=== PATIENT | male | born 1985 | race Asian ===

== ENCOUNTER 2018-02-05 13:34 | Emergency (ER) | payer SELFPAY | END 2018-02-05 14:46 | disposition home or self-care (01) | LOC: ERS 13:34 | DX: J06.9 Acute upper respiratory infection, unspecified (principal) | CPT/HCPCS: 99283 ==

== ENCOUNTER 2018-04-24 16:22 | Emergency (ER) | payer SELFPAY ==
[2018-04-24 16:55] LABS: #Eosinphils 0.4 thou/uL (0.0-0.7); #Lymphocytes 2.1 thou/uL (1.20-3.40); %Basophils 0.4 % (0.0-1.0); %Eosinophils 4.1 % (0.0-10.0); %Lymphocytes 22.2 % (21.0-51.0); %Monocytes 10.5 % (0.0-10.0); %Neutrophils 62.8 % (42.0-75.0); Hemoglobin 12.9 g/dL (14.0-18.0); Mean Corpuscular HGB CONC 31.4 g/dL (32.0-36.0); Mean Corpuscular Hemoglobin 26.3 pg (27.0-31.0); Mean Corpuscular Volume 83.6 fL (78.0-98.0); Mean Platelet Volume 9.1 fL (7.4-10.4); Platelet Count 166 thou/uL (130-400); Red Blood Cell (RBC) Count 4.91 mill/uL (4.70-6.10); White Blood Cell (WBC) Count 9.5 thou/uL (4.8-10.8)
--- NOTE | 2018-04-24 17:05 | CT ---
CT HEAD NONCONTRAST: Date: 04/24/18 HISTORY: Syncope. FINDINGS: No comparison. There is no evidence of acute intracranial hemorrhage or infarct. Ventricles appear normal in size, s hape, and position. There is no mass effect or shift of midline structures. Fluid layers within the p artially visualized left maxillary sinus. Mucosal thickening within the maxillary sinuses and ethmoid air cells. IMPRESSION: 1. No acute intracranial abnormalities are demonstrated. 2. Ethmoid and left maxillary sinusitis. POS: [facility]
--- NOTE | 2018-04-24 17:31 | RAD ---
CHEST ONE VIEW: 04/24/17 HISTORY: Syncope. FINDINGS: No comparison. The cardiac silhouette is magnified by projection. Pulmonary vasculature upper limits of normal. Medi astinum is midline. No lobar consolidation or evidence of pneumothorax. IMPRESSION: No active cardiopulmonary abnormalities are demonstrated. POS: [facility]
== END 2018-04-24 17:28 | disposition home or self-care (01) ==
LOC: ERS 16:22
DX: R55 Syncope and collapse (principal); R51 Headache
CPT/HCPCS: 36415; 70450; 71045; 82550; 84146; 85025; 93005

== ENCOUNTER 2018-09-24 15:36 | Emergency (ER) | payer SELFPAY ==
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
[2018-09-24] MEDS ORDERED: Ketorolac Tromethamine 30 MG/ML VIAL ONE (16:36)
== END 2018-09-24 16:55 | disposition home or self-care (01) ==
LOC: ERS 15:36
DX: G89.11 Acute pain due to trauma (principal); M25.552 Pain in left hip; W22.8XXA Striking against or struck by other objects, initial encounter
CPT/HCPCS: 96372; J1885

== ENCOUNTER 2020-04-13 09:56 | Emergency (ER) | payer OTHER, SELFPAY ==
[2020-04-13 10:29] LABS: #Basophils 0.1 thou/uL (0.0-0.2); #Eosinphils 0.3 thou/uL (0.0-0.7); #Lymphocytes 2.6 thou/uL (1.20-3.40); #Monocytes 0.4 thou/uL (0.11-0.59); #Neutrophils 2.3 thou/uL (1.40-6.50); %Basophils 1.1 % (0.0-1.0); %Eosinophils 5.6 % (0.0-10.0); %Lymphocytes 46.3 % (21.0-51.0); %Monocytes 6.8 % (0.0-10.0); %Neutrophils 40.3 % (42.0-75.0); Hemoglobin 13.7 g/dL (14.0-18.0); Mean Corpuscular HGB CONC 32.4 g/dL (32.0-36.0); Mean Corpuscular Hemoglobin 25.9 pg (27.0-31.0); Mean Platelet Volume 9.3 fL (7.4-10.4); Platelet Count 186 thou/uL (130-400); RBC Distribution Width 12.4 % (11.5-14.5); Red Blood Cell (RBC) Count 5.28 mill/uL (4.70-6.10); White Blood Cell (WBC) Count 5.6 thou/uL (4.8-10.8)
[2020-04-13 10:36] LABS: INR-International Normal Ratio 1.1; PTT 26.5 sec (22.9-36.1); Prothrombin Time 14.5 sec (12.0-14.7)
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
[2020-04-13 10:49] LABS: ALT (SGPT) 21 U/L (8-55); AST (SGOT) 15 U/L (5-34); Albumin 4.3 g/dL (3.5-5.0); Alkaline Phosphatase 57 U/L (40-110); Anion Gap 13 mmol/L (10-20); BUN (Urea Nitrogen) 11 mg/dL (8.9-20.6); Bilirubin, Total 0.5 mg/dL (0.2-1.2); Calc. Creatinine Clearance 0 mL/min (70-130); Calcium 9.1 mg/dL (7.8-10.44); Carbon Dioxide 25 mmol/L (22-29); Chloride 108 mmol/L (98-107); Globulin 3.2 g/dL (2.4-3.5); Glucose 113 mg/dL (70-105); Potassium 3.4 mmol/L (3.5-5.1); Protein, Total 7.5 g/dL (6.0-8.3); Sodium 143 mmol/L (136-145)
--- NOTE | 2020-04-13 11:09 | CT ---
CT CERVICAL SPINE: DATE: 04/13/2020. PROVIDED CLINICAL HISTORY: Pain status post fall. FINDINGS: There is no evidence for a fracture or traumatic subluxation. There is left premaxillary soft tissue swelling demonstrated. There is no prevertebral soft tissue swelling apparent. The visualized lung apices appear clear on the coronal and sagittal reconstructions. IMPRESSION: No evidence for a fracture or traumatic subluxation. POS: [facility]
[2020-04-13] MEDS ORDERED: Boostrix 0.5 ML (Tdap) VIAL ONE (11:21)
[2020-04-13] MEDS ORDERED: Ondansetron PF 4 MG/2 ML Vial ONE (11:24)
[2020-04-13] MEDS ORDERED: Morphine 4 MG/ML VIAL ONE (11:24)
== END 2020-04-13 12:00 | disposition home or self-care (01) ==
LOC: ERS 09:56 → EDBD 09:56 → ERS 12:00
DX: S06.0X9A Concussion with loss of consciousness of unspecified duration, initial encounter (principal); W01.10XA Fall on same level from slipping, tripping and stumbling with subsequent striking against unspecified object, initial encounter; Y99.0 Civilian activity done for income or pay
CPT/HCPCS: 70450; 70486; 72125; 80053; 85025; 85610; 85730; 90471; 90715; 93005; 96374; 96375; J2270; J2405

== ENCOUNTER 2023-11-12 23:40 | Emergency (ER) | payer OTHER, SELFPAY | END 2023-11-13 00:26 | disposition home or self-care (01) | LOC: ERS 23:40 | DX: L24.5 Irritant contact dermatitis due to other chemical products (principal) | CPT/HCPCS: 99283 ==

== ENCOUNTER 2024-01-05 12:24 | Emergency (ER) | payer OTHER ==
[2024-01-05] MEDS ORDERED: Famotidine 20 MG TAB ONE (15:55)
[2024-01-05] MEDS ORDERED: Lidocaine Viscous Sol 2% 15 ml UD Cup ONE (15:55)
[2024-01-05] MEDS ORDERED: Mag-Al 1200 mg/1200 mg/30 ML UDCUP ONE (15:55)
[2024-01-05] MEDS ORDERED: Lansoprazole 30 MG/10 ML UDCUP PO SCH (16:15)
[2024-01-05 17:27] LABS: #Basophils 0.03 10x3/uL (0.0-0.2); %Basophils 0.4 % (0.0-1.0); %Eosinophils 3.3 % (0.0-10.0); %Lymphocytes 41.7 % (21.0-51.0); %Monocytes 7.5 % (0.0-10.0); %Neutrophils 46.7 % (42.0-75.0); Hemoglobin 13.4 g/dL (14.0-18.0); Mean Corpuscular HGB CONC 31.2 g/dL (32.0-36.0); Mean Corpuscular Hemoglobin 24.2 pg (27.0-31.0); Mean Corpuscular Volume 77.6 fL (78.0-98.0); Mean Platelet Volume 10.3 fL (7.4-10.4); Platelet Count 243 10x3/uL (130-400); RBC Distribution Width 14.8 % (11.5-14.5); Red Blood Cell (RBC) Count 5.54 mill/uL (4.70-6.10)
[2024-01-05 17:42] LABS: Bacteria/HPF None Seen HPF (None Seen); Bilirubin Negative (Negative); Blood, Urine Negative (Negative); Clarity Clear (Clear); Glucose, Urine (Dipstick) Normal (Negative); Ketone, Urine Negative (Negative); Leukocyte Negative Leu/uL (Negative); Nitrite Negative (Negative); Protein, Urine (Dipstick) Negative (Neg-Trace); RBC/HPF 0-3 HPF (0-3); Specific Gravity, Urine 1.013 (1.002-1.036); Squamous Epithelial None Seen HPF (0-3); Urobilinogen Normal mg/dL (Less than 2); WBC/HPF 0-3 HPF (0-3)
[2024-01-05 18:00] LABS: ALT (SGPT) 31 U/L (8-55); AST (SGOT) 20 U/L (5-34); Albumin 4.1 g/dL (3.5-5.0); Alkaline Phosphatase 69 U/L (40-110); Anion Gap 12 mmol/L (10-20); BUN (Urea Nitrogen) 12 mg/dL (8.9-20.6); Bilirubin, Total 0.4 mg/dL (0.2-1.2); Calc. Creatinine Clearance 0 mL/min (70-130); Calcium 9.1 mg/dL (7.8-10.44); Carbon Dioxide 24 mmol/L (22-29); Chloride 103 mmol/L (98-107); Estimated GFR 115; Glucose 96 mg/dL (70-105); Lipase 22 U/L (8-78); Potassium 3.3 mmol/L (3.5-5.1); Protein, Total 8.1 g/dL (6.0-8.3); Sodium 136 mmol/L (136-145)
[2024-01-06 05:15] LABS: Chlam.trachomatis by PCR,Urine Not Detected (NotDetected); GC N.gonorrhoeae PCR,UrineVOID Not Detected (NotDetected)
== END 2024-01-05 18:24 | disposition home or self-care (01) ==
LOC: ERS 12:24
DX: K21.9 Gastro-esophageal reflux disease without esophagitis (principal); N52.9 Male erectile dysfunction, unspecified
CPT/HCPCS: 36415; 76870; 80053; 81001; 83690; 85025; 87491; 87591; 93976